=== PATIENT | male | born 1980 | race Caucasian/White ===

== ENCOUNTER → 2016-07-22 | Outpatient (CLI) | payer OTHER ==
--- NOTE | 2016-07-22 17:49 | MR ---
MR thoracic spine with and without contrast HISTORY: Postsurgical thoracic spine pain Multiplanar multisequence and postcontrast images obtained through the thoracic spine following 15 cc MultiHance IV Correlation to prior MR thoracic spine 06/26/2015 There is mild dextroscoliosis of the thoracic spine as on prior exam. There is been interval multilev el laminectomy. The mass effect at the posterior cord is no longer seen, there is however an abnormal course of the cord which extends to the right of midline towards the posterior aspect of the thecal sac and a normal shape of the cord is somewhat distorted at the level of approximately T5. Additional ly there is abnormal increased signal within the cord centrally at this level on T2-weighted images i s an interval finding compatible with myelomalacia. Small posterior disc herniation resonant T5-6 and T4-5. There is no foraminal encroachment or central canal stenosis. No abnormal enhancement on contrast administration. IMPRESSION: Postop changes, there is myelomalacia in the thoracic cord. There may be an adhesion at t he posterior cord causing a deviation of its course or possibly mass effect due to recurrent arachnoi d cyst.
== END | disposition home or self-care (01) ==
LOC: RADMRIMAIN 06:34
PROVIDERS: ATTEND Nurse Practitioner
DX: G95.89 Other specified diseases of spinal cord (principal); Z98.890 Other specified postprocedural states
CPT/HCPCS: 72157; A9577

== ENCOUNTER 2016-08-08 22:33 | Emergency (ER) | payer OTHER ==
[2016-08-08 22:49] VITALS: RESP 18
[2016-08-08] MEDS ORDERED: HYDROcodone/APAP 7.5-325MG 1 EACH TAB PO ONE (23:55)
[2016-08-08] MEDS ORDERED: ORPHENADRINE 30 MG/ML 2 ML VIAL IM STA (23:55)
[2016-08-08 23:58] LABS: Anion Gap 10 mmol/L; Blood Urea Nitrogen 13 mg/dL (9-20); C Reactive Protein <5.0 mg/L (<10.0); Calcium 9.5 mg/dL (8.4-10.2); Carbon Dioxide 24 mmol/L (22-30); Chloride 109 mmol/L (98-107); Glucose 99 mg/dL (74-99); Non-African American GFR(MDRD) >60 (>60 ml/min/1.73 sqM); Potassium 4.1 mmol/L (3.5-5.1); Sodium 143 mmol/L (137-145)
[2016-08-09 00:13] LABS: Basophils % (A) 1 %; CH 31.6; CHCM 34.7; Eosinophils # (A) 0.7 k/uL (0-0.7); Eosinophils % (A) 8 %; HCT 43.4 % (39.0-53.0); HDW 2.29; Luc # (Auto) 0.36; Luc % (Auto) 4; Lymphocytes # (A) 2.4 k/uL (1.0-4.8); Lymphocytes % (A) 29 %; MCH 31.6 pg (25.0-35.0); MCHC 34.6 g/dL (31.0-37.0); MCV 91.3 fL (80.0-100.0); Mean Platelet Volume 7.4; Monocytes # (A) 0.5 k/uL (0-1.0); Monocytes % (A) 6 %; Neutrophils # (A) 4.3 k/uL (1.3-7.7); Neutrophils % (A) 52 %; RBC 4.75 m/uL (4.30-5.90); RDW 12.2 % (11.5-15.5); WBC 8.3 k/uL (3.8-10.6); WBC (Perox) 8.45
[2016-08-09] MEDS ORDERED: MORPHINE SULFATE 4 MG/ML SYRINGE IV STA (00:51)
[2016-08-09 01:01] VITALS: BP 124/78; PULSE 64
--- NOTE | 2016-08-09 01:39 | ED ---
General Adult HPI - General Chief complaint: Extremity Problem,Nontraumatic Stated complaint: Leg weakness Time Seen by Provider: 08/08/16 22:57 Source: patient Mode of arrival: ambulatory Limitations: no limitations - History of Present Illness Initial comments: This patient is a 36-year-old man with history of chronic upper back pain. He states that he had surgery a number of months ago for arachnoid cyst, and subsequently developed myelomalacia. He did have an MRI performed approximately one month ago for these pains. He is on medication for the pain, but states that tonight he did not have any relief from home meds. He does complain of a little bit of symmetric lower extremity weakness but states that this is not rapidly progressing. He is not having any change in bladder or bowel function. He states that he is mainly here because of the pain that is going on. -: hour(s) Location: back Radiation: distal Quality: burning, aching Consistency: constant Improves with: none Worsens with: none Associated Symptoms: weakness (Chronic) Treatments Prior to Arrival: other (Prescription medication) - Related Data Home Medications Medication Instructions Recorded Confirmed HYDROcodone/APAP 7.5-325MG [Fisher 1 tab PO Q4-6H PRN 08/08/16 08/08/16 7.5-325] Oxybutynin ER [Ditropan Xl] 10 mg PO DAILY 08/08/16 08/08/16 Allergies Allergy/AdvReac Type Severity Reaction Status Date / Time No Known Allergies Allergy Verified 08/08/16 22:49 Review of Systems ROS Statement: Those systems with pertinent positive or pertinent negative responses have been documented in the HPI. ROS Other: All systems not noted in ROS Statement are negative. Constitutional: Reports: weakness. Denies: fever, chills Respiratory: Denies: cough, dyspnea Cardiovascular: Denies: chest pain, palpitations, edema Gastrointestinal: Denies: abdominal pain, vomiting, diarrhea, constipation Genitourinary: Denies: dysuria, hematuria, other (Patient denies urinary incontinence or retention) Musculoskeletal: Reports: as per HPI, back pain Skin: Denies: rash Neurological: Reports: weakness. Denies: headache, numbness, paresthesias (I lateral lower extremity) Past Medical History Additional Past Medical History / Comment(s): scolosis, myelomalacia, aracnoid cyst (removed 11/12/2015), hyperhidrosis History of Any Multi-Drug Resistant Organisms: None Reported Past Surgical History: No Surgical Hx Reported Additional Past Surgical History / Comment(s): partial laminectomy 11/12/2015 Past Psychological History: ADD/ADHD, Anxiety Smoking Status: Current every day smoker Past Alcohol Use History: Occasional Past Drug Use History: None Reported General Exam Limitations: no limitations General appearance: alert, in no apparent distress Head exam: Present: atraumatic, normocephalic Eye exam: Present: normal appearance Neck exam: Present: normal inspection, full ROM. Absent: tenderness Respiratory exam: Present: normal lung sounds bilaterally. Absent: respiratory distress, wheezes, rales, rhonchi, stridor Cardiovascular Exam: Present: regular rate, normal rhythm, normal heart sounds. Absent: systolic murmur, diastolic murmur, rubs, gallop GI/Abdominal exam: Present: soft. Absent: distended, tenderness, guarding, rebound Extremities exam: Present: normal inspection, normal capillary refill. Absent: pedal edema, calf tenderness Back exam: Absent: CVA tenderness (R), CVA tenderness (L), vertebral tenderness Neurological exam: Present: reflexes normal, other (The patient does have 5 out of 5 bilateral lower extremity strength and there is no hyperreflexia reflex he. The toes are downgoing). Absent: motor sensory deficit Skin exam: Present: warm, dry, intact, normal color. Absent: rash Course Vital Signs 08/08/16 08/09/16 08/09/16 22:44 01:00 01:46 Temperature 98.0 F 98.4 F Pulse Rate 75 64 Respiratory 18 18 Rate Blood Pressure 144/93 124/78 O2 Sat by Pulse 99 97 Oximetry Medical Decision Making - Medical Decision Making This patient is a 36-year-old man with chronic back pain and some myelomalacia for which he is to follow-up with his neurosurgeon. He did mention having some lower extremity weakness but is able to ambulate and he is not having any signs of cord compromise. He has had good relief with the medication here. He is going to call his neurosurgeon in the morning to follow-up. We did discuss return parameters. - Lab Data Result diagrams: 08/08/16 23:30 08/08/16 23:30 Lab Results 06/08/08/16 08/08/16 Range/Units 23:30 23:30 23:30 WBC 8.3 (3.8-10.6) k/uL RBC 4.75 (4.30-5.90) m/uL Hgb 15.0 (13.0-17.5) gm/dL Hct 43.4 (39.0-53.0) % MCV 91.3 (80.0-100.0) fL MCH 31.6 (25.0-35.0) pg MCHC 34.6 (31.0-37.0) g/dL RDW 12.2 (11.5-15.5) % Plt Count 160 (150-450) k/uL Neutrophils % 52 % Lymphocytes % 29 % Monocytes % 6 % Eosinophils % 8 % Basophils % 1 % Neutrophils # 4.3 (1.3-7.7) k/uL Lymphocytes # 2.4 (1.0-4.8) k/uL Monocytes # 0.5 (0-1.0) k/uL Eosinophils # 0.7 (0-0.7) k/uL Basophils # 0.0 (0-0.2) k/uL ESR 2 (0-15) mm/hr Sodium 143 (137-145) mmol/L Potassium 4.1 (3.5-5.1) mmol/L Chloride 109 H (98-107) mmol/L Carbon Dioxide 24 (22-30) mmol/L Anion Gap 10 mmol/L BUN 13 (9-20) mg/dL Creatinine 0.80 (0.66-1.25) mg/dL Est GFR (MDRD) Af Amer >60 (>60 ml/min/1.73 sqM) Est GFR (MDRD) Non-Af >60 (>60 ml/min/1.73 sqM) Glucose 99 (74-99) mg/dL Calcium 9.5 (8.4-10.2) mg/dL C-Reactive Protein <5.0 (<10.0) mg/L Disposition Clinical Impression: Acute exacerbation of chronic low back pain Disposition: HOME SELF-CARE Condition: Fair Instructions: Chronic Back Pain (ED) Additional Instructions: As we discussed, all your neurosurgeon's answering service tomorrow and left him know you're seen here and that you need to follow with him. Should the symptoms recur or if there is worsening, as we discussed, return here immediately Referrals: Elizabeth Moore DO [Primary Care Provider] - 1-2 days
[2016-08-09 01:48] VITALS: TEMP 98.4
== END 2016-08-09 01:44 | disposition home or self-care (01) ==
LOC: EC 22:33
DX: G89.29 Other chronic pain (principal); M54.5 Low back pain; F17.200 Nicotine dependence, unspecified, uncomplicated; Z79.899 Other long term (current) drug therapy; Z98.890 Other specified postprocedural states
CPT/HCPCS: 36415; 80048; 85652; 85025; 86140; 99284; 96374; 96372; J2270; J2360

== ENCOUNTER → 2016-10-13 | Outpatient (CLI) | payer OTHER ==
--- NOTE | 2016-10-13 20:54 | MR ---
EXAMINATION TYPE: MR lumbar spine wo con DATE OF EXAM: 10/13/2016 COMPARISON: NONE HISTORY: Lumbar pain, Luc leg pain TECHNIQUE: Multiplanar, multisequence images of the lumbar spine were acquired. L1-L2: Normal disc appearance without desiccation. No herniation, protrusion or disc bulging. No ca nal stenosis is present. Foramina are patent bilaterally. L2-L3: Normal disc appearance without desiccation. No herniation, protrusion or disc bulging. No ca nal stenosis is present. Foramina are patent bilaterally. L3-L4: Normal disc appearance without desiccation. No herniation, protrusion or disc bulging. No ca nal stenosis is present. Foramina are patent bilaterally. L4-L5: Normal disc appearance without desiccation. No herniation, protrusion or disc bulging. No ca nal stenosis is present. Foramina are patent bilaterally. L5-S1: Normal disc appearance without desiccation. No herniation, protrusion or disc bulging. No ca nal stenosis is present. Foramina are patent bilaterally. Lumbar segments are intact. No paraspinal masses are identified. Conus medullaris has a normal appe arance. Lumbar vertebral bodies show preserved height, alignment, and bone marrow signal. Small corti juan j cyst associated with the left kidney measures 1 cm. IMPRESSION: Normal lumbar MRI
== END | disposition home or self-care (01) ==
LOC: RADMRIMAIN 19:58
PROVIDERS: ATTEND Internal Medicine
DX: M54.16 Radiculopathy, lumbar region (principal)
CPT/HCPCS: 72148

== ENCOUNTER → 2017-04-22 | Outpatient (CLI) | payer OTHER ==
--- NOTE | 2017-04-22 12:37 | CONS ---
CONSULTATION DATE OF SERVICE: 04/22/2017 This is a 36-year-old gentleman has been evaluated in the sleep center for possible obstructive sleep apnea-hypopnea syndrome. HISTORY OF PRESENT ILLNESS/SLEEP WAKE EVALUATION: Patient usual sleep schedule from about midnight to 2 a.m. until 3-7 a.m. He does have significant problem with falling asleep secondary to anxiety and has TV set in bedroom. He has loud snoring and witnessed episodes of stopped breathing during the sleep. He wakes up from sleep more than 10 times. In the morning, he wakes up tired, has difficulties to pay attention, has problems with memory, concentration, irritability, depression and anxiety. He does not take any naps during the day. Tuttle Sleepiness Scale is 0. PAST MEDICAL HISTORY: Positive for anxiety, depression, ADHD, back problems. PAST SURGICAL HISTORY: Back surgery in 2016, for laminectomy with removing arachnoid cyst in thoracic spine area. MEDICATIONS: [place], Flexeril, Wellbutrin XR, oxybutynin, Zantac. SOCIAL HISTORY: Positive for smoking from half to 1 pack a day for about 20 years. Alcohol consumption occasional. FAMILY HISTORY: Hypertension, heart problems, hyperlipidemia, epilepsy, arthritis, bronchitis, snoring, headaches, cancer, acid reflux, ulcers, diabetes, thyroid problems. REVIEW OF SYSTEMS: Multiple awakenings from sleep, snoring, tiredness during the day, anxiety while falling asleep. No fevers. No double vision. No recent chest pain. No shortness of breath. No abdominal pain. No bleeding episodes. No blood in urine. No seizure episodes. PHYSICAL EXAM: During physical exam, gentleman without distress. VITAL SIGNS: BP 146/83, HR 100, RR 16, height 6 feet and 1 inch, weight 153, BMI 20.1, temperature 98.9, oxygen saturation on room air 98%. HEENT: PERRLA, EOMI. Oropharynx extremely low position of soft palate. Short distance between soft palate. Restriction of nasal breathing on the left side mostly. NECK: Supple, no JVD. Thyroid is not palpable. LUNGS: Clear to percussion and to auscultation. Good air exchange. No wheezing or rhonchi. HEART: S1, S2 regular. No murmurs, gallops, or rubs. ABDOMEN: Soft and nontender. Bowel sounds are present. No organomegaly appreciated. EXTREMITIES: No clubbing or cyanosis. FLUE [employer]LE [employer]ESS OPERATOR: Awake, alert, and oriented X3. Cranial nerves 2 to 7 intact. There is no fasciculation or atrophy. noted. No focal deficits observed. Sometimes difficulties to move because of back pain. IMPRESSION: 1. Snoring, witnessed episodes of stopped breathing during sleep, extremely low position of soft palate, multiple awakenings from sleep more than 10 times, obstructive sleep apnea-hypopnea syndrome. 2. Low back pain. 3. Status post back surgery for laminectomy to arachnoid cyst in thoracic level of spine. 4. History of depression. 5. History of anxiety. 6. History of attention-deficit hyperactivity disorder. 7. Acid reflux. 8. History of hyperhidrosis. PLAN: 1. Polysomnography for evaluation of patient's breathing during sleep. 2. CPAP/BiPAP titration if sleep study confirms obstructive sleep apnea-hypopnea syndrome. 3. Preferable position during sleep on the side. 4. No driving if patient feels any sleepiness. Patient is aware of civil and criminal liability for unsafe driving. 5. I will see patient for follow up visit to explain results of testing and following plan. Thank you very much for referring this patient for consultation. Sincerely, Russ Nayak MD, PhD, FAASM Diplomat of [employer] [employer] [facility] [place] MMODL / BLADIMIRN: [id number] /
== END ==
LOC: SLEEP 11:23
PROVIDERS: ATTEND Internal Medicine
DX: G47.33 Obstructive sleep apnea (adult) (pediatric) (principal); M54.5 Low back pain; K21.9 Gastro-esophageal reflux disease without esophagitis; F32.9 Major depressive disorder, single episode, unspecified; F41.9 Anxiety disorder, unspecified; F90.9 Attention-deficit hyperactivity disorder, unspecified type; R61 Generalized hyperhidrosis; F17.200 Nicotine dependence, unspecified, uncomplicated; Z99.89 Dependence on other enabling machines and devices; Z79.891 Long term (current) use of opiate analgesic; Z79.899 Other long term (current) drug therapy
CPT/HCPCS: 99201